=== PATIENT | female | born 1990 | race Caucasian/White ===

== ENCOUNTER 2019-01-30 12:45 | Emergency (ER) | payer BC, SELFPAY ==
[2019-01-30 12:46] VITALS: BP 121/74; PULSE 77; RESP 18; TEMP 36.6; O2SAT 98; BMI 29.9
--- NOTE | 2019-01-30 13:27 | ED.VIS.GEN ---
History of Present Illness Informant: Patient, Family Narrative: 8-year-old female with no past medical history presents with left eye irritation. States she was petting her cat. States that it is gotten worse over the past 1 hour. She does state that over the past 10 minutes however it has improved. They did flush the eye extensively. Denies any trauma. Denies any vision change. Her main concern is there seemed to be a bump on her left eye. Denies any past history of allergies to cat dander. Patient denies corrective lenses. <Lucius Souza - Last Filed: 01/30/19 17:52> <Traci Le - Last Filed: 01/30/19 18:01> Chief Complaint: Eye Problem Past Medical History Prior records reviewed: Yes Past Medical History: None <Lucius Souza - Last Filed: 01/30/19 17:52> <Traci Le - Last Filed: 01/30/19 18:01> - Allergies and Home Meds Allergies/Adverse Reactions: Allergies No Known Allergies Allergy (Verified 01/30/19 14:25) Primary Care Physician: Care Physician,No Primary [Primary Care Provider] - Review of Systems General: Denies: Chills, Fever, Sweats Eyes: Reports: -, - - Left eye irritation. Denies: Visual changes - bilaterally, Diplopia ENT: Denies: Rhinorrhea, Sore throat Cardiovascular: Denies: Chest pain, Palpitations Respiratory: Denies: Dyspnea, Cough, Dyspnea on exertion Gastrointestinal: Denies: Abdominal pain, Nausea, Vomiting, Diarrhea, Melena, Hematochezia Genitourinary: Denies: Dysuria, Hematuria, Frequency Musculoskeletal: Denies: Back pain, Extremity Pain Skin: Denies: Rash, Wounds Neurological: Denies: Headache, Weakness, Numbness <Lucius Souza - Last Filed: 01/30/19 17:52> Physical Exam Vital Signs/Narrative: Vital Signs Temp Pulse Resp BP Pulse Ox 01/30/19 12:46 97.9 F 77 18 121/74 H 98 Inital Vital Signs reviewed: Yes General: Well nourished, Well developed, No Acute Distress Head: Normocephalic, Atraumatic Eyes: Perrl, EOMI, - - Left conjunctival irritation with mild left chemosis. ENT: Moist mucous membranes, No rhinorrhea Neck: Supple, Nontender Cardiovascular: Regular rate, Regular rhythm, No murmurs Respiratory: No distress, CTA bilaterally, Chest nontender Abdomen: Soft, Nontender, Nondistended, Normal bowel sounds Back: Nontender, Normal Inspection Extremities: Nontender, No edema Skin: Normal color, No rash Neurological: Alert, Oriented x3, Cranial nerves II-XII grossly intact, Normal Strength, Normal Sensation Psychological: Normal affect, Normal Mood <Lucius Souza - Last Filed: 01/30/19 17:52> Vital Signs/Narrative: Vital Signs Resp 01/30/19 14:27 18 <Traci Le - Last Filed: 01/30/19 18:01> Diagnostic/Tx/Re-eval - Medical Decision Making Appears well nontoxic. Likely allergic versus inflammatory secondary to environmental exposure. Patient was offered forcing staining which she declined. Patient advised to take OTC Benadryl. Asked return for any new or worsening symptoms including vision change or increasing pain. Patient agreed with this plan and discharged home in stable condition. Stable. Impression: Allergic conjunctivitis <Lucius Souza - Last Filed: 01/30/19 17:52> - Medical Decision Making Seen and evaluated with Dr. Souza. Patient presents after noting left eye irritation and itching after petting her cat. On my examination patient has minimal erythema to the left eye. Extraocular movements are intact. No periorbital edema or erythema. Patient states that her symptoms are improving significantly. She declines floor seen stain or further eye exam. She will use cool washcloth and take Benadryl. <Traci Le - Last Filed: 01/30/19 18:01> ED Disposition <Lucius Souza - Last Filed: 01/30/19 17:52> <Traci Le - Last Filed: 01/30/19 18:01> - Plan for ED Patient: Disposition: Home or Assisted Living Diagnosis: Allergic conjunctivitis Instructions: CONJUNCTIVITIS, Allergic Referrals: Care Physician,No Primary [Primary Care Provider] -
[2019-01-30 14:27] VITALS: RESP 18
== END 2019-01-30 14:27 | disposition home or self-care (01) ==
LOC: ED 14:14
PROVIDERS: Emergency Provider Emergency Medicine
DX: H10.12 Acute atopic conjunctivitis, left eye (principal)
CPT/HCPCS: 99282